=== PATIENT | male | born 1960 | race African-American/Black ===

== ENCOUNTER 2017-07-03 01:45 | Emergency (ER) | payer OTHER ==
[2017-07-03 02:30] LABS: BASOPHIL COUNT 0.1 K/uL (0-0.1); EOSINOPHIL (%) 0.2 % (0-5); EOSINOPHIL COUNT 0.1 K/uL (0-0.3); HEMATOCRIT 39.2 % (38.0-50.0); IMMATURE GRANULOCYTE COUNT 0.4 K/uL; INSTRUMENT ABS NEUTROPHIL CT 15.6 K/uL; LYMPHOCYTE COUNT 2.8 K/uL (1.0-2.8); MCH 29.9 PG (29.0-34.0); MCHC 32.7 G/DL (30.0-36.0); MCV 91.6 FL (86-99); MONOCYTE (%) 6.8 % (3-12); MONOCYTE COUNT 1.4 K/uL (0-0.8); NEUTROPHIL (%) 76.9 % (45-76); NEUTROPHIL COUNT 15.6 K/uL (1.8-6.4); NRBC (%) 0.1 /100 WBC (0-0); RED BLOOD COUNT 4.28 M/uL (4.00-5.50); WHITE BLOOD COUNT 20.3 K/uL (4.1-10.2)
[2017-07-03 02:44] LABS: AMYLASE 97 IU/L (1-118); CHLORIDE 109 mEq/L (99-109); POTASSIUM 4.6 mEq/L (3.7-5.4); SODIUM 135 mEq/L (136-147)
[2017-07-03 02:46] LABS: GLUCOSE 215 mg/dL (70-99)
[2017-07-03 02:47] LABS: ANION GAP 10 MEQ/L (2-14)
[2017-07-03 02:49] LABS: SERUM ETHYL ALCOHOL 166 mg/dL
[2017-07-03 02:49] LABS: ADD MIUA? YES; BILIRUBIN NEGATIVE; BLOOD LARGE; COLOR YELLOW ((YELLOW)); GLUCOSE (STRIP) 50; KETONES NEGATIVE; LEUKOCYTES NEGATIVE; NITRITE NEGATIVE; PROTEIN (STRIP) 100; SPECIFIC GRAVITY 1.015 (1.000-1.030); UROBILINOGEN 0.2 MG/DL (0.2-1.0)
[2017-07-03 02:50] LABS: GFR ESTIMATE (CALCULATED) > 59 mL/min/; UREA NITROGEN (BUN) 8 mg/dL (9-23)
[2017-07-03 02:53] LABS: LIPASE 124 U/L (1.0-51.0)
[2017-07-03 03:08] LABS: AMPHETAMINE NEGATIVE (500 ng/mL); BARBITURATES NEGATIVE (200 ng/mL); BENZODIAZEPINES NEGATIVE (150 ng/mL); COCAINE PRESUMPTIVE POSITIVE (150 ng/mL); INTERNAL CONTROLS VALID? YES; METHADONE NEGATIVE (200 ng/mL); METHAMPHETAMINE NEGATIVE (500 ng/mL); OPIATES (MORPHINE) NEGATIVE (100 ng/mL); OXYCODONE NEGATIVE (100 ng/mL); PHENCYCLIDINE NEGATIVE (25 ng/mL); PROPOXYPHENE NEGATIVE (300 ng/mL); THC CANNABINOIDS NEGATIVE (50 ng/mL); TRICYCLIC ANTIDEPRESSANTS NEGATIVE (300 ng/mL)
[2017-07-03 03:09] LABS: ADD MEDTOX COMMENT Y
[2017-07-03 03:11] LABS: BASE EXCESS -12.1 mEq/L (-3 to +3); BICARBONATE 14.7 mEq/L (22-26); CARBOXY HGB 3.1 % (0-5); COMMENTS - BLOOD GASES A+C+; DEVICE 980; FI02 100 %; MECHANICAL RATE 16 resp/min; METHEMOGLOBIN 1.1 % (0-1.5); MODE AC; PCO2 36 mm Hg (35-45); PEEP 5 CM/H20; PO2 191 mm Hg (80-100); SITE RR; TIDAL VOLUME 500 ML; TOTAL RESP RATE 20 resp/min; pH 7.22 (7.35-7.45)
[2017-07-03 03:31] LABS: RED BLOOD CELLS 30-40 /HPF (0-5); WHITE BLOOD CELLS NONE SEEN /HPF (0-5)
[2017-07-03 03:32] LABS: BACTERIA 2+ /HPF; EPITHELIAL CELLS 1+ /HPF; MUCUS 1+ /LPF; UCUL ADDED? YES
[2017-07-03 03:36] LABS: PLATELET CLUMPS PRESENT - PLATELET COUNT APPEARS ADQ.; PLATELET COUNT UNABLE TO REPORT K/uL (156-360)
== END 2017-07-03 06:18 | disposition short-term general hospital (02) ==
LOC: EME 01:45 → TRA 01:45 → EDBD 01:45 → TRA 06:18
PROVIDERS: Emergency Medicine
DX: S27.0XXA Traumatic pneumothorax, initial encounter (principal); S72.401B Unspecified fracture of lower end of right femur, initial encounter for open fracture type I or II; S42.402B Unspecified fracture of lower end of left humerus, initial encounter for open fracture; S12.600A Unspecified displaced fracture of seventh cervical vertebra, initial encounter for closed fracture; S22.089A Unspecified fracture of T11-T12 vertebra, initial encounter for closed fracture; V49.40XA Driver injured in collision with unspecified motor vehicles in traffic accident, initial encounter; S22.43XA Multiple fractures of ribs, bilateral, initial encounter for closed fracture; S82.041A Displaced comminuted fracture of right patella, initial encounter for closed fracture; S72.92XA Unspecified fracture of left femur, initial encounter for closed fracture; S22.21XA Fracture of manubrium, initial encounter for closed fracture; F10.129 Alcohol abuse with intoxication, unspecified; Y90.6 Blood alcohol level of 120-199 mg/100 ml; Z89.512 Acquired absence of left leg below knee
CPT/HCPCS: 36600; 70450; 71010; 71260; 72125; 72129; 72132; 73060; 73090; 73552; 73560; 73590; 74177; 80048; 81003; 82150; 82803; 83690; 84999; 85025; 86850; 86900; 86901; 86920; 87070; 87086; 87205; 90832; 93005; 94002; 99281; 99285; G0480; J0690; J2250; J2704; J3010; P9016